=== PATIENT | female | born 1990 | race Caucasian/White ===

== ENCOUNTER 2016-11-28 07:14 | Emergency (ER) | payer SELFPAY ==
[2016-11-28 07:34] VITALS: BP 160/100
[2016-11-28] MEDS ORDERED: D5NS 0.2% 1,000 ML IV SCH (08:00)
[2016-11-28 08:13] LABS: Basophils % (Auto) 0.3 % (0.0-1.8); Hematocrit 24.8 % (30.3-42.9); Mean Corpuscular HGB Conc 32 % (30-34); Mean Corpuscular Hemoglobin 28 pg (28-32); Mean Corpuscular Volume 88 fl (79-97); Platelet Count 206 K/mm3 (140-440); Red Cell Distribution Width 16.9 % (13.2-15.2); Reticulocyte % 10.12 % (0.78-2.58); White Blood Count 10.9 K/mm3 (4.5-11.0)
--- NOTE | 2016-11-30 01:05 | ED Elopement Review ---
ED Pt Elopement review - Results review Lab results: Laboratory Tests 11/28/16 07:42 WBC 10.9 RBC 2.80 L Hgb 8.0 L Hct 24.8 L MCV 88 MCH 28 MCHC 32 RDW 16.9 H Plt Count 206 Lymph % (Auto) 32.7 Nye % (Auto) 5.3 Eos % (Auto) 2.0 Baso % (Auto) 0.3 Lymph # 3.6 Nye # 0.6 Eos # 0.2 Baso # 0.0 Seg Neutrophils % 59.7 Seg Neutrophils # 6.5 Percent Retic 10.12 H - Call Back decision Pt Call Back Decision: No action required
== END 2016-11-28 09:00 | disposition left against medical advice (07) ==
LOC: ED 07:14
DX: D57.00 Hb-SS disease with crisis, unspecified (principal); I50.9 Heart failure, unspecified; Z88.5 Allergy status to narcotic agent; Z88.8 Allergy status to other drugs, medicaments and biological substances; Z95.0 Presence of cardiac pacemaker; Z53.21 Procedure and treatment not carried out due to patient leaving prior to being seen by health care provider
CPT/HCPCS: 36415; 85025; 85045